=== PATIENT | male | born 1995 | race Caucasian/White ===

== ENCOUNTER 2017-08-18 10:43 | Emergency (ER) | payer OTHER ==
[2017-08-18] MEDS ORDERED: Adacel (T-DAP) 0.5 ML VIAL ONE (11:39)
--- NOTE | 2017-08-18 12:15 | RAD ---
RIGHT SMALL FINGER THREE VIEWS: HISTORY: Laceration to the fifth finger with pain. COMPARISON: None. FINDINGS: Three views of the right small finger show no evidence of acute fracture or dislocation. No radiopaq ue foreign body is seen. No degenerative changes are present. IMPRESSION: No evidence of acute osseous abnormality. POS: [facility]
[2017-08-18] MEDS ORDERED: Lidocaine 1% (PF) 30 ML VIAL ONE (12:26)
[2017-08-18] MEDS ORDERED: Bacitracin Zinc 1 Packet ONE (14:10)
== END 2017-08-18 14:23 | disposition home or self-care (01) ==
LOC: ERS 10:43
DX: S61.216A Laceration without foreign body of right little finger without damage to nail, initial encounter (principal); Z71.6 Tobacco abuse counseling; F17.220 Nicotine dependence, chewing tobacco, uncomplicated; W26.8XXA Contact with other sharp object(s), not elsewhere classified, initial encounter; Y92.69 Other specified industrial and construction area as the place of occurrence of the external cause
CPT/HCPCS: 12002; 90471; 90715; 99406; J2001

== ENCOUNTER 2017-09-03 08:15 | Day surgery (SDC) | payer OTHER ==
[2017-09-02 14:56] VITALS: BMI 22.8
[2017-09-03] MEDS ORDERED: Bupivacaine PF 0.5% 30 ML VIAL ONE ×2 (10:54→11:31)
[2017-09-03] MEDS ORDERED: Bupivacaine HCl 0.5%/Epinephrine 1:200,000/PF 30 ml Vial ONE (10:54)
[2017-09-03] MEDS ORDERED: Fentanyl 100 MCG/2 ML VIAL ONE ×3 (10:59→14:12)
[2017-09-03] MEDS ORDERED: Ketorolac Tromethamine 30 MG/ML VIAL ONE (13:12)
[2017-09-03] MEDS ORDERED: Ondansetron HCl/PF 4 MG/2 ML Vial ONE (13:12)
[2017-09-03] MEDS ORDERED: Lidocaine 1% PF 5 ML VIAL ONE (13:12)
[2017-09-03] MEDS ORDERED: PROPOFOL 200 MG/20 ML VIAL ONE (13:12)
[2017-09-03] MEDS ORDERED: Dexamethasone 20 MG/5 ML VIAL ONE (13:12)
--- NOTE | 2017-09-03 14:09 | OP ---
DATE OF SURGERY: 09/03/2017 PREOPERATIVE DIAGNOSIS: Avulsion of the profundus tendon of the right little finger. POSTOPERATIVE DIAGNOSIS: Avulsion of the profundus tendon of the right little finger. PROCEDURE: Repair of flexor tendon. SURGEON: Yosi Tenorio M.D. DESCRIPTION OF PROCEDURE: The patient was brought to the operating room and after administration of general anesthetic intubation, the right upper extremity was prepped and draped in the usual fashion and the tourniquet was inflated. The little finger had a crush/laceration injury to it and there was some skin and soft tissue on the pulp of the end of the finger and this was debrided off. A laceration in the finger was then ex tended and converted into a Ej flap. The profundus tendon was noted to be absent from the tendon sheath and so a small transverse incision was made in the palm and the tendon was retrieved there. An attempt was first made to pass the tendon through the sheath with a #5 [place] feeding tube, but it was too big and so a suture was placed in the tendon and it was passed by pulling the sutures throug h the decussation and through the A3 josiah and the A4 josiah. The distal portion A4 josiah was open ed up and released to facilitate passage of the tendon. The tendon did reach out to the end of the f holland fairly easily, even though it had been 2 weeks since the injury. The distal phalanx was cleane d off with a curette and a Townsend blade until bleeding bone was identified in the distal phalanx. A drill hole was placed through it with a 0.045 K-wire. The tendon was then secured with 3-0 Prolene u sing a Mirna type stitch. The suture was passed through the bony tunnel with a Alfredo needle and br ought out over the nail. The suture was then passed through some Xeroform, piece of felt and a butto n and was tied down over the button while holding the button very firmly against the finger and havin g the finger completely flex. The repair appeared to be secure and the tendon was seen to be up agai nst the distal phalanx very nicely. With the wrist flexed it was possible to fully extend the finger . The wound was copiously irrigated multiple times before closing. The Ej flap that had been el evated off of the flexor sheath was then advanced a bit distally to help cover the area around the vo lar pad that had been crushed and injured. Care was taken to make sure no tension was put on any of the soft tissues distally. The remainder of the wound was closed with interrupted 5-0 nylon sutures. A well-padded bulky dressing was applied with a dorsal splint with the wrist and little finger flex ed and the patient was taken to recovery room in satisfactory condition. He was monitored. When he was awake and stable, he was discharged home. He was given prescription f or pain medication, wound care instructions, and followup appointment.
== END 2017-09-03 15:45 | disposition home or self-care (01) ==
LOC: SDC 08:15
PROVIDERS: ATTEND Orthopaedic Surgery
PROC: 0LQ70ZZ Repair Right Hand Tendon, Open Approach (ICD-10-PCS; principal; 2017-09-03)
DX: S66.196A Other injury of flexor muscle, fascia and tendon of right little finger at wrist and hand level, initial encounter (principal)
CPT/HCPCS: J0670; J3010; S0020